=== PATIENT | female | born 1980 | race Caucasian/White ===

== ENCOUNTER → 2020-03-08 | Outpatient (REF) | payer BC | LOC: M LAB REF 18:02 | PROVIDERS: ATTEND Dermatology | DX: R21 Rash and other nonspecific skin eruption (principal) ==

== ENCOUNTER → 2020-09-21 | Outpatient (CLI) | payer BC ==
--- NOTE | 2020-09-26 19:19 | SLEEPHOME ---
DATE: 09/21/2020 ORDERED BY: Bell Sam MD Diagnostic home sleep testing was performed due to concern for the obstructive sleep apnea syndrome in this patient with a history of fatigue. For testing, a nocturnal T3 respiratory monitoring device was used. Continuous record was made of pulse, oxygen saturation, air flow, chest and abdominal strain, and body position. Nine hours and 59 minutes of data were reviewed. There were 6 hours and 14 minutes marked as time in bed. During the interval marked time in bed, there were 53 respiratory events identified of 10 seconds in duration or greater for a respiratory event index of 8.5. The events were obstructive. Baseline pulse rate was 73. Pulse rate ranged 63 to 89. Baseline saturation was 95%. Saturations fell to 88%. Testing was performed in both the supine and nonsupine positions. IMPRESSION: Abnormal home sleep testing with repetitive respiratory events and oxygen desaturations to 88% with a respiratory event index of 8.5 per hour is consistent with the obstructive sleep apnea syndrome. RECOMMENDATION: The patient should be encouraged to undergo a formal sleep evaluation.
== END ==
LOC: M SLEEP HO 11:18
PROVIDERS: ATTEND Internal Medicine
DX: R53.82 Chronic fatigue, unspecified (principal)